=== PATIENT | female | born 1990 | race Caucasian/White ===

== ENCOUNTER 2016-10-20 22:14 | Emergency (ER) | END 2016-10-21 03:48 | disposition home or self-care (01) | DX: N83.201 Unspecified ovarian cyst, right side (principal); N30.01 Acute cystitis with hematuria; F17.210 Nicotine dependence, cigarettes, uncomplicated; J45.909 Unspecified asthma, uncomplicated | CPT/HCPCS: 36415; 76856; 80053; 81001; 81003; 83690; 84703; 85025; 87591; 96372; J0696; Z7502 ==

== ENCOUNTER 2016-11-28 21:45 | Inpatient (IN) | payer MEDICAID ==
[~2016-11-28] VITALS: Ht 167.6 cm; Wt 60.2 kg
[~2016-11-28 21:45] MED LIST: CEPH-443 PO; HYDR-906 PO; IBUP-1542 PO; PHEN-538 PO; PREN1TAB49; TRAM50TA2 PO
[2016-11-28] MEDS ORDERED: ONDANSETRON (ODT) 4 MG TAB ODT STA (23:00)
--- NOTE | 2016-11-28 23:08 | ERD ---
ER Documentation Chief Complaint Date/Time DATE: 11/28/16 TIME: 23:07 Chief Complaint lower back pain x 2 days. also c/o nausea/dizziness (ENRRIQUE LOMBARDO NP) HPI 25-year-old female presents to emergency department for lower back pain, generalized abdominal pain, chest pain, nausea, episodes of vomiting yesterday , dizziness, generalized fatigability started yesterday. Patient denies any blood in the vomit. Patient denies any diarrhea or constipation. Patient feels bloated. Patient is also having dry cough, does not cough up any phlegm or blood. Patient does not have any short is breath or wheezing. Patient did not take any medications to symptoms. Patient denies any sick contacts. Patient did not take any medications to help with symptoms. (ENRRIQUE LOMBARDO NP) ROS All systems reviewed and are negative except as per history of present illness. (ENRRIQUE LOMBARDO NP) Medications Home Meds Active Scripts Cephalexin* (Keflex*) 500 Mg Capsule, 500 MG PO QID for 10 Days, CAP Prov:ENRRIQUE LOMBARDO NP 10/21/16 Ibuprofen* (Motrin*) 600 Mg Tab, 600 MG PO Q6H Y for PAIN AND OR ELEVATED TEMP, #30 TAB Prov:ENRRIQUE LOMBARDO NP 10/21/16 Hydrocodone/Acetaminophen ([place] 5-325 Tablet) 1 Each Tablet, 1 TAB PO Q6H Y for PAIN, #20 TAB Prov:ENRRIQUE LOMBARDO NP 10/21/16 Phenazopyridine Hcl* (Pyridium*) 200 Mg Tab, 200 MG PO TID Y for URINARY PAIN, # 6 TAB Prov:ENRRIQUE LOMBARDO NP 10/21/16 Tramadol HCl (Tramadol HCl) 50 Mg Tablet, 50 MG PO Q4 Y for PAIN, #20 TAB Prov:ROBB BRUNER MD 08/15/16 Ibuprofen* (Motrin*) 600 Mg Tab, 600 MG PO Q6, #20 TAB Prov:ROBB BRUNER MD 08/15/16 Reported Medications Vits W-Ca,Fe,Fa(<1MG) () 1 Tab Tablet 12/12/10 Allergies Allergies: Coded Allergies: ciprofloxacin (Verified Allergy, Unknown, swelling, 11/28/16) PMhx/Soc History of Surgery: No Anesthesia Reaction: No Hx Neurological Disorder: No Hx Respiratory Disorders: Yes (Asthma-childhood) Hx Cardiac Disorders: No Hx Psychiatric Problems: No Hx Miscellaneous Medical Probl: No Hx Alcohol Use: Yes (SOCIALLY) Hx Substance Use: No Hx Tobacco Use: Yes (OCCASIONALY) (ENRRIQUE LOMBARDO NP) FmHx Family History: No coronary disease, No diabetes, No other (ENRRIQUE LOMBRADO NP) Physical Exam Vitals Vital Signs Date Time Temp Pulse Resp B/P Pulse Ox O2 Delivery O2 Flow Rate FiO2 11/29/16 04:20 98.1 91 14 133/90 98 Room Air 11/28/16 21:53 98.0 90 20 122/73 98 (FLOYDMEKBRENDAN LOW MD) Physical Exam GENERAL: The patient is well developed and appropriate for usual state of health, in no apparent distress. CHEST: Clear to auscultation bilaterally. There are no rales, wheezes or rhonchi. HEART: Regular rate and rhythm. No murmurs, clicks, rubs or gallops. No S3 or S4. ABDOMEN: Soft, nontender and nondistended. Good bowel sounds. No rebound or guarding. No gross peritonitis. No gross organomegaly or masses. No Mclaughlin sign or McBurney point tenderness. BACK: No midline or flank tenderness. EXTREMITIES: Equal pulses bilaterally. There is no peripheral clubbing, cyanosis or edema. No focal swelling or erythema. Full range of motion. Grossly neurovascularly intact. NEURO: Alert and oriented. Cranial nerves 2-12 intact. Motor strength in all 4 extremities with 5/5 strength. Sensation grossly intact. Normal speech and gait. SKIN: There is no apparent rash or petechia. The skin is warm and dry. HEMATOLOGIC AND LYMPHATIC: There is no evidence of excessive bruising or lymphedema. No gross cervical, axillary, or inguinal lymphadenopathy. (ENRRIQUE LOMBARDO NP) Result Diagram: 11/28/16 2310 11/28/16 2310 Results 24 hrs Laboratory Tests Test 11/28/16 23:10 11/28/16 23:15 Alanine Aminotransferase (ALT/SGPT) 30IU/L Albumin 4.7g/dl Albumin/Globulin Ratio 1.30 Alkaline Phosphatase 68IU/L Anion Gap 19 Aspartate Amino Transf (AST/SGOT) 62IU/L Basophils # 0.010^3/ul Basophils % 0.2% Blood Urea Nitrogen 10mg/dl Calcium Level 9.1mg/dl Carbon Dioxide Level 28mmol/L Chloride Level 100mmol/L Creatinine 0.62mg/dl Direct Bilirubin 0.00mg/dl Eosinophils # 0.110^3/ul Eosinophils % 0.7% Globulin 3.60g/dl Glucose Level 98mg/dl Hematocrit 43.2% Hemoglobin 13.9g/dl Indirect Bilirubin 0.2mg/dl Lipase 51U/L Lymphocytes # 1.510^3/ul Lymphocytes % 8.0% Mean Corpuscular Hemoglobin 30.5pg Mean Corpuscular Hemoglobin Concent 32.2g/dl Mean Corpuscular Volume 94.9fl Mean Platelet Volume 9.9fl Monocytes # 0.810^3/ul Monocytes % 4.3% Neutrophils # 15.810^3/ul Neutrophils % 86.4% Nucleated Red Blood Cells # 0.010^3/ul Nucleated Red Blood Cells % 0.0/100WBC Platelet Count 50446^3/UL Potassium Level 3.7mmol/L Red Blood Count 4.5510^6/ul Red Cell Distribution Width 12.6% Sodium Level 143mmol/L Total Bilirubin 0.2mg/dl Total Protein 8.3g/dl White Blood Count 18.310^3/ul Urine Bacteria MANY Urine Bilirubin NEGATIVE Urine Clarity HAZY Urine Color LT. YELLOW Urine Glucose NEGATIVE% Urine Hemoglobin 2+ Urine Ketones TRACE Urine Leukocyte Esterase TRACE Urine Microscopic RBC 2-5/HPF Urine Microscopic WBC 0-2/HPF Urine Nitrite NEGATIVE Urine Specific [place] 1.020 Urine Squamous Epithelial Cells MANY Urine Total Protein NEGATIVE Urine Urobilinogen 0.2 E.U./dL Urine pH 6.5 Current Medications Medications (Trade) Dose Ordered Sig/[place] Route PRN Reason Start Time Stop Time Status Last Admin Dose Admin Ondansetron HCl (Zofran Odt) 4 mg ONCE STAT ODT 11/28/16 23:00 11/28/16 23:17 DC Ondansetron HCl 4 mg 4 mg ONCE STAT IV 11/28/16 23:16 11/28/16 23:18 DC 11/28/16 23:20 Sodium Chloride (NS) 1,000 ml @ 1,000 mls/hr Q1H ONCE IV 11/28/16 23:30 11/29/16 00:29 DC 11/28/16 23:20 Morphine Sulfate (morphine) 4 mg ONCE STAT IV 11/29/16 03:43 11/29/16 03:49 DC 11/29/16 03:53 Ondansetron HCl (Zofran Inj) 4 mg ONCE STAT IV 11/29/16 03:46 11/29/16 03:49 DC 11/29/16 03:53 Morphine Sulfate (morphine) 4 mg STK-MED ONCE .ROUTE 11/29/16 03:49 11/29/16 03:50 DC Midazolam HCl (Versed) 2 mg ONCE ONCE IV 11/29/16 04:00 11/29/16 04:01 DC 11/29/16 04:08 Ondansetron HCl (Zofran Inj) 4 mg ONCE STAT IV 11/29/16 03:59 11/29/16 04:00 DC 11/29/16 04:08 Ondansetron HCl (Zofran Inj) 4 mg BRIDGE ORDER PRN IV NAUSEA AND/OR VOMITING 11/29/16 05:00 11/30/16 04:59 Acetaminophen (Tylenol Tab) 650 mg ER BRIDGE PRN PO MILD PAIN/FEVER 11/29/16 05:00 11/30/16 04:59 (BRENDAN MIKE MD) Results 24 hrs Patient was given Zofran here in the emergency department. After treatment, patient was able to tolerate po fluids here in the emergency department without any vomiting. There is no signs and symptoms of dehydration. PROCEDURE: CT of the abdomen and pelvis without contrast CLINICAL INDICATION: Abdominal Pain. TECHNIQUE: Spiral CT images through the abdomen and pelvis without the use of contrast. The administered radiation dose is CTDI 8.62 and DLP 486.39. One or more of the following dose reduction techniques were used: automated exposure control, adjustment of the mA and/or kV according to patient size, or use of iterative reconstruction technique. COMPARISON: None FINDINGS: Lack of oral and intravenous contrast somewhat limits evaluation. Slight dependent atelectasis of the lung bases is seen. No pleural effusion is seen. Gallstones are again seen. The gallbladder does not appear distended. No biliary or pancreatic ductal dilatation is seen. The liver, spleen, and adrenals are unremarkable in appearance. New tiny nonobstructing stone is seen in the medial upper pole of the right kidney. Probable hyperdense 9 mm cyst in the posterior left kidney is again seen. Mild chronic diffuse prominence of the pancreatic size is unchanged. The appendix is normal in appearance. There is mild dilatation of essentially all of the visualized small bowel loops without a clearly defined transition point. Fluid is seen in the cecum and moderate stool is otherwise seen throughout the colon. No free air or abscess is seen. No adenopathy or ascites is seen. The bladder, uterus, and adnexa are unremarkable appearance. Probable small right ovarian follicles. Small calcification in the subcutaneous fat in the lateral right gluteal region. No bony abnormality is seen.. IMPRESSION: Mild dilatation of essentially all small bowel loops without a clearly defined transition point. While early distal small bowel obstruction cannot be excluded , this may be due to ileus. If pain persists, follow-up study with IV and oral contrast would be recommended. Normal appendix. Cholelithiasis. No ductal dilatation. New tiny nonobstructing right renal stone. Stable probable hyperdense cyst in the left kidney. RPTAT: [facility] Physician Ramón Date Time Electronically viewed and signed by Physician Ramón on 11/29/2016 03 :36 LE/ CC: ENRRIQUE LOMBARDO NP I discussed this case with my attending physician,Dr Rudd, reviewed patient' s CT scan abdomen and pelvis with me, patient be admitted to the hospital for possible observation and treatment. Patient is transferred to ER 1. (ENRRIQUE LOMBARDO NP) Procedures/MDM Medical Decision Making: Patient abdominal pain nonspecific at this time, possible ileus, can be early small bowel obstruction, considering patient is actively vomiting, in severe pain, further evaluation and observation is necessary, possible admission, I spoke with my attending physician,will facilitate patient's admission to the hospital. (ENRRIQUE LOMBARDO NP) The patient was transferred from ER 1 for admission. She is presenting with multiple episodes of intractable nausea and vomiting today with associated diffuse abdominal pain. Her labs were notable for an elevated white blood cell count, which may be indicative of acute infection versus a stress response to her vomiting. Her CT shows evidence of diffuse small bowel dilatation, which may be secondary to an acute gastroenteritis. Given her intractable vomiting, an NG tube was placed. She was given multiple doses of anti-emetics. I do not suspect surgical abdomen at this time but I do not believe the patient is stable for discharge and will need admission for bowel rest and serial abdominal exams. Accepting Care Team: Current data and ongoing care discussed. Time: Time of admission Primary Provider: Dr. Vega Consulting: None Outstanding Data: none (BRENDAN MIKE MD) Departure Diagnosis: Primary Impression: Vomiting Vomiting type: unspecified Vomiting Intractability: unspecified Nausea presence: unspecified Qualified Code: R11.10 - Vomiting, intractability of vomiting not specified, presence of nausea not specified, unspecified vomiting type Additional Impressions: Abdominal pain Abdominal location: generalized Qualified Code: R10.84 - Generalized abdominal pain Ileus Condition: Fair ENRRIQUE LOMBARDO NP Nov 28, 2016 23:08 BRENDAN MIKE MD Nov 29, 2016 04:57
[2016-11-28] MEDS ORDERED: ONDANSETRON 4 MG INJ IV STA (23:16)
[2016-11-28 23:21] LABS: ADD SCAN DIFF NO
[2016-11-28 23:27] LABS: BASOPHILS % 0.2 % (0.0-2.0); EOSINOPHILS # 0.1 10^3/ul (0.0-0.5); EOSINOPHILS % 0.7 % (0.0-7.0); HEMATOCRIT 43.2 % (37.0-47.0); HEMOGLOBIN 13.9 g/dl (12.0-16.0); LYMPHOCYTES # 1.5 10^3/ul (0.8-2.9); MEAN CORPUSCULAR HEMOGLOBIN 30.5 pg (29.0-33.0); MEAN CORPUSCULAR HGB CONC 32.2 g/dl (32.0-37.0); MEAN CORPUSCULAR VOLUME 94.9 fl (82.0-101.0); MEAN PLATELET VOLUME 9.9 fl (7.4-10.4); MONOCYTE # 0.8 10^3/ul (0.3-0.9); MONOCYTES % 4.3 % (0.0-11.0); NEUTROPHIL # 15.8 10^3/ul (1.6-7.5); NEUTROPHILS % 86.4 % (39.0-77.0); PLATELET COUNT 293 10^3/UL (140-415); RED BLOOD COUNT 4.55 10^6/ul (4.20-5.40); RED CELL DISTRIBUTION WIDTH 12.6 % (11.5-14.5); WHITE BLOOD COUNT 18.3 10^3/ul (4.8-10.8)
[2016-11-28] MEDS ORDERED: SOD CHLORIDE 0.9% 1,000 ML IV ONE (23:30)
[2016-11-28 23:33] LABS: ALBUMIN 4.7 g/dl (3.3-4.9)
[2016-11-28 23:34] LABS: POTASSIUM 3.7 mmol/L (3.5-5.1)
[2016-11-28 23:36] LABS: BILIRUBIN,INDIRECT 0.2 mg/dl (0-1.1); BILIRUBIN,TOTAL 0.2 mg/dl (0.2-1.3); CREATININE 0.62 mg/dl (0.44-1.00)
[2016-11-28 23:37] LABS: ALBUMIN/GLOBULIN RATIO 1.3; CALCIUM 9.1 mg/dl (8.4-10.2); TOTAL PROTEIN 8.3 g/dl (6.1-8.1)
[2016-11-29 00:04] LABS: ADD UMIC YES; URINE BILIRUBIN (Dip) NEGATIVE (NEGATIVE); URINE BLOOD (Dip) 2+ (NEGATIVE); URINE COLOR LT. YELLOW (YELLOW); URINE GLUCOSE (Dip) NEGATIVE (NEGATIVE); URINE KETONES (Dip) TRACE (NEGATIVE); URINE LEUKOCYTE ESTERASE (Dip) TRACE (NEGATIVE); URINE NITRITE (Dip) NEGATIVE (NEGATIVE); URINE TOTAL PROTEIN (Dip) NEGATIVE (NEGATIVE); URINE UROBILINOGEN (Dip) 0.2 E.U./dL (0.1-1.0)
[2016-11-29 00:34] LABS: BACTERIA,URINE MANY; SQUAMOUS EPITHELIAL CELL,UR MANY
--- NOTE | 2016-11-29 00:56 | RADRPT ---
PROCEDURE: CHEST - 1 VIEW CLINICAL INDICATION: 25-year-old female with chest/abdominal pain. TECHNIQUE: A single frontal AP semi-erect view of the chest was performed portably. The images we re reviewed on a PACS workstation. COMPARISON: None. FINDINGS: The cardiomediastinal silhouette has a normal appearance. There is no evidence for an infiltrate. T he pulmonary vascularity is within normal limits. There is no evidence for pneumothorax or pneumomed iastinum. The osseous structures are intact. IMPRESSION: No evidence for active cardiopulmonary disease. .Glen Garcia MD, MD Date Time Electronically viewed and signed by .Glen Garcia MD, MD on 11/29/2016 00:55 .M/
--- NOTE | 2016-11-29 03:36 | RADRPT ---
PROCEDURE: CT of the abdomen and pelvis without contrast CLINICAL INDICATION: Abdominal Pain. TECHNIQUE: Spiral CT images through the abdomen and pelvis without the use of contrast. The admin istered radiation dose is CTDI 8.62 and DLP 486.39. One or more of the following dose reduction alejandrina hniques were used: automated exposure control, adjustment of the mA and/or kV according to patient s ize, or use of iterative reconstruction technique. COMPARISON: None FINDINGS: Lack of oral and intravenous contrast somewhat limits evaluation. Slight dependent atelectasis of the lung bases is seen. No pleural effusion is seen. Gallstones are again seen. The gallbladder d oes not appear distended. No biliary or pancreatic ductal dilatation is seen. The liver, spleen, and adrenals are unremarkable in appearance. New tiny nonobstructing stone is se en in the medial upper pole of the right kidney. Probable hyperdense 9 mm cyst in the posterior lef t kidney is again seen. Mild chronic diffuse prominence of the pancreatic size is unchanged. The a ppendix is normal in appearance. There is mild dilatation of essentially all of the visualized smal l bowel loops without a clearly defined transition point. Fluid is seen in the cecum and moderate s tool is otherwise seen throughout the colon. No free air or abscess is seen. No adenopathy or ascit es is seen. The bladder, uterus, and adnexa are unremarkable appearance. Probable small right ova heena follicles. Small calcification in the subcutaneous fat in the lateral right gluteal region. N o bony abnormality is seen.. IMPRESSION: Mild dilatation of essentially all small bowel loops without a clearly defined transition point. Wh ile early distal small bowel obstruction cannot be excluded, this may be due to ileus. If pain pers ists, follow-up study with IV and oral contrast would be recommended. Normal appendix. Cholelithiasis. No ductal dilatation. New tiny nonobstructing right renal stone. Stable probable hyperdense cyst in the left kidney. RPTAT: [facility] Physician Ramón Date Time Electronically viewed and signed by Daksha Bean Physician on 11/29/2016 03:36 LE/
[2016-11-29] MEDS ORDERED: morphine 4 MG/ML VIAL IV STA (03:43)
[2016-11-29] MEDS ORDERED: ONDANSETRON 4 MG INJ IV STA ×2 (03:46→03:59)
[2016-11-29] MEDS ORDERED: morphine 4 MG/ML VIAL ONE (03:49)
[2016-11-29] MEDS ORDERED: MIDAZOLAM 1 MG/ML 2 ML INJ IV ONE (04:00)
[2016-11-29 04:20] VITALS: TEMP 98.1
[2016-11-29] MEDS ORDERED: ONDANSETRON 4 MG INJ IV PRN ×2 (05:00→07:00)
[2016-11-29] MEDS ORDERED: ACETAMINOPHEN 325 MG TAB PO PRN (05:00)
[2016-11-29 06:04] VITALS: BP 117/69; PULSE 83; RESP 18; Ht 167.6 cm; Wt 60.2 kg
--- NOTE | 2016-11-29 06:47 | HP ---
Date/Time of Note Date/Time of Note DATE: 11/29/16 TIME: 06:44 Assessment/Plan VTE Prophylaxis VTE Prophylaxis Intervention: ambulation Lines/Catheters IV Catheter Type (from Nrsg): Saline Lock Assessment/Plan Assessment/Plan 1) Vomiting Vomiting type: unspecified Vomiting Intractability: unspecified Nausea presence: unspecified Qualified Code: R11.10 - Vomiting, intractability of vomiting not specified, presence of nausea not specified, unspecified vomiting type - Admit to Med Surg - NPO - H2 sade - Antiemetics 2) Abdominal pain Abdominal location: generalized Qualified Code: R10.84 - Generalized abdominal pain Ileus - May need GI or General Surgery Consult if her pain persists or worsens. - Consider infectious source as WBCs are elevated. HPI/ROS Admit Date/Time Admit Date/Time Nov 29, 2016 at 04:40 Hx of Present Illness Chief Complaint lower back pain x 2 days. also c/o nausea/dizziness HPI 25-year-old female presents to emergency department for lower back pain, generalized abdominal pain, chest pain, nausea, episodes of vomiting yesterday , dizziness, generalized fatigability started yesterday. She thought that she had the flu because of all the body aches she was having. Patient denies any blood in the vomit. Patient denies any diarrhea or constipation. Patient feels bloated. She has a pain in her epigastrium (where she points) and it wraps around to the right flank and back, it does not bore straight through her. Intermittently, she has had sharp pains in her left shoulder and left upper back. Some feel like expanding gas bubbles. She sometimes gets relief of her abdominal symptoms when she has a BM. She went to work yesterday, but had to leave early as she was having cold sweats. She then started vomiting uncontrollably - no food, only bile. Patient is also having dry cough, does not cough up any phlegm or blood. Patient does not have any short is breath or wheezing. Patient did not take any medications to symptoms. Patient denies any sick contacts. Patient did not take any medications to help with symptoms. Patient mentions that a cyst was recently found on one of her ovaries. She had her period for a month, and it stopped 4 days ago. Her breasts were tender, but that resolved when her period stopped. She thinks the long period may be because she went of Depo-Cheese [employer] 2 to 3 months ago. She has a history of gastritis and states that it gets aggravated by acidic things like coffee, but also greasy things like butter.She has not had black or bloody stools. Besides her abdominal pains, patient mentions the pain from her NGT, particularly in her right nare and some down her throat which was also irritated from her recent cold. ROS: Unremarkable except for what is in the HPI. PMH/Family/Social Past Medical History Medical History: other (Gastritis; Asthma as a child.) Past Surgical History Past Surgical Hx: no surgical history Social History Alcohol Use: occasionally (Socially) Smoking Status: Current some day smoker Drug Use: none Exam/Review of Systems Vital Signs Vitals Vital Signs Date Time Temp Pulse Resp B/P Pulse Ox O2 Delivery O2 Flow Rate FiO2 11/29/16 06:04 98.4 83 18 117/69 94 Room Air Intake and Output 11/28/16 11/28/16 11/29/16 15:00 23:00 07:00 Intake Total 1000 ml Balance 1000 ml Exam Exam GENERAL: The patient is well developed and appropriate for usual state of health, in no apparent distress. CHEST: Clear to auscultation bilaterally. There are no rales, wheezes or rhonchi. HEART: Regular rate and rhythm. No murmurs, clicks, rubs or gallops. No S3 or S4. ABDOMEN: Soft, nontender and nondistended. Good bowel sounds. No rebound or guarding. No gross peritonitis. No gross organomegaly or masses. No Mclaughlin sign or McBurney point tenderness. BACK: No midline or flank tenderness. EXTREMITIES: Equal pulses bilaterally. There is no peripheral clubbing, cyanosis or edema. No focal swelling or erythema. Full range of motion. Grossly neurovascularly intact. NEURO: Alert and oriented. Cranial nerves 2-12 intact. Motor strength in all 4 extremities with 5/5 strength. Sensation grossly intact. Normal speech and gait. SKIN: There is no apparent rash or petechia. The skin is warm and dry. HEMATOLOGIC AND LYMPHATIC: There is no evidence of excessive bruising or lymphedema. No gross cervical, axillary, or inguinal lymphadenopathy. Labs Result Diagram: 11/28/16 2310 11/28/16 2310 Procedures Procedures Laboratory Tests Test 3/11/17 23:10 11/28/16 23:15 Alanine Aminotransferase (ALT/SGPT) 30IU/L Albumin 4.7g/dl Albumin/Globulin Ratio 1.30 Alkaline Phosphatase 68IU/L Anion Gap 19 Aspartate Amino Transf (AST/SGOT) 62IU/L Basophils # 0.010^3/ul Basophils % 0.2% Blood Urea Nitrogen 10mg/dl Calcium Level 9.1mg/dl Carbon Dioxide Level 28mmol/L Chloride Level 100mmol/L Creatinine 0.62mg/dl Direct Bilirubin 0.00mg/dl Eosinophils # 0.110^3/ul Eosinophils % 0.7% Globulin 3.60g/dl Glucose Level 98mg/dl Hematocrit 43.2% Hemoglobin 13.9g/dl Indirect Bilirubin 0.2mg/dl Lipase 51U/L Lymphocytes # 1.510^3/ul Lymphocytes % 8.0% Mean Corpuscular Hemoglobin 30.5pg Mean Corpuscular Hemoglobin Concent 32.2g/dl Mean Corpuscular Volume 94.9fl Mean Platelet Volume 9.9fl Monocytes # 0.810^3/ul Monocytes % 4.3% Neutrophils # 15.810^3/ul Neutrophils % 86.4% Nucleated Red Blood Cells # 0.010^3/ul Nucleated Red Blood Cells % 0.0/100WBC Platelet Count 59799^3/UL Potassium Level 3.7mmol/L Red Blood Count 4.5510^6/ul Red Cell Distribution Width 12.6% Sodium Level 143mmol/L Total Bilirubin 0.2mg/dl Total Protein 8.3g/dl White Blood Count 18.310^3/ul Urine Bacteria MANY Urine Bilirubin NEGATIVE Urine Clarity HAZY Urine Color LT. YELLOW Urine Glucose NEGATIVE% Urine Hemoglobin 2+ Urine Ketones TRACE Urine Leukocyte Esterase TRACE Urine Microscopic RBC 2-5/HPF Urine Microscopic WBC 0-2/HPF Urine Nitrite NEGATIVE Urine Specific [place] 1.020 Urine Squamous Epithelial Cells MANY Urine Total Protein NEGATIVE Urine Urobilinogen 0.2 E.U./dL Urine pH 6.5 RADIOLOGY: PROCEDURE: CT of the abdomen and pelvis without contrast CLINICAL INDICATION: Abdominal Pain. FINDINGS: Lack of oral and intravenous contrast somewhat limits evaluation. Slight dependent atelectasis of the lung bases is seen. No pleural effusion is seen. Gallstones are again seen. The gallbladder does not appear distended. No biliary or pancreatic ductal dilatation is seen. The liver, spleen, and adrenals are unremarkable in appearance. New tiny nonobstructing stone is seen in the medial upper pole of the right kidney. Probable hyperdense 9 mm cyst in the posterior left kidney is again seen. Mild chronic diffuse prominence of the pancreatic size is unchanged. The appendix is normal in appearance. There is mild dilatation of essentially all of the visualized small bowel loops without a clearly defined transition point. Fluid is seen in the cecum and moderate stool is otherwise seen throughout the colon. No free air or abscess is seen. No adenopathy or ascites is seen. The bladder, uterus, and adnexa are unremarkable appearance. Probable small right ovarian follicles. Small calcification in the subcutaneous fat in the lateral right gluteal region. No bony abnormality is seen.. IMPRESSION: Mild dilatation of essentially all small bowel loops without a clearly defined transition point. While early distal small bowel obstruction cannot be excluded , this may be due to ileus. If pain persists, follow-up study with IV and oral contrast would be recommended. Normal appendix. Cholelithiasis. No ductal dilatation. New tiny nonobstructing right renal stone. Stable probable hyperdense cyst in the left kidney. PROCEDURE: CHEST - 1 VIEW CLINICAL INDICATION: 25-year-old female with chest/abdominal pain. FINDINGS: The cardiomediastinal silhouette has a normal appearance. There is no evidence for an infiltrate. The pulmonary vascularity is within normal limits. There is no evidence for pneumothorax or pneumomediastinum. The osseous structures are intact. IMPRESSION: No evidence for active cardiopulmonary disease. DILLAN WADE DO Nov 29, 2016 06:46 The cardiomediastinal silhouette has a normal appearance. There is no evidence for an infiltrate. The pulmonary vascularity is within normal limits. There is no evidence for pneumothorax or pneumomediastinum. The osseous structures are intact.
[2016-11-29] MEDS ORDERED: ACETAMINOPHEN 650 MG SUPP PR PRN (07:00)
[2016-11-29] MEDS ORDERED: NACL 0.9% 3 ML SYG IV SCH (07:00)
[2016-11-29 07:21] VITALS: BP 115/63; RESP 18
[2016-11-29] MEDS ORDERED: SOD CHLORIDE 0.9% 1,000 ML IV SCH (07:30)
[2016-11-29 07:55] LABS: CANNABINOIDS Negative (NEGATIVE)
[2016-11-29 07:56] LABS: BARBITURATES Negative (NEGATIVE); BENZODIAZEPINES Negative (NEGATIVE); COCAINE Negative (NEGATIVE); OPIATES Positive (NEGATIVE)
[2016-11-29] MEDS: FAMOTIDINE 20 MG INJ IV SCH ×2 (08:32→21:15)
[2016-11-29] MEDS: morphine 2 MG INJ IV PRN ×4 (08:35→22:43)
[2016-11-29] MEDS ORDERED: BARIUM SULF 2% 450 ML BTL (BERRY SMOOTHIE) PO ONE (11:30)
[2016-11-29] MEDS: PHENOL 1.4% SOLN 180 ML BTL MT PRN ×4 (11:33→21:16)
[2016-11-29] MEDS: D5W-0.45 NACL + KCL 20 MEQ 1,000 ML IV SCH ×2 (11:33→21:19)
--- NOTE | 2016-11-29 15:50 | RADRPT ---
PROCEDURE: CT Abdomen and Pelvis without contrast. CLINICAL INDICATION: Abdominal and pelvic pain. TECHNIQUE: CT scan of the abdomen and pelvis without contrast was performed. 900 ml of Choi cast oral contrast was administered for this study. Coronal and sagittal reformatted images were obtained from the axial source images. Images were reviewed on a high-resolution PACS workstation. Total exa m DLP is 388.92 mGy-cm. CTDIvol is 6.98 mGy. One or more of the following dose reduction technique s were used: Automated exposure control, adjustment of the mA and/or kV according to patient size, u se of iterative reconstruction technique. COMPARISON: Prior study done earlier the same day. FINDINGS: The lung bases are normal. There is no pleural effusion. The liver is normal in size and attenuation. There is no focal hepatic lesion. Multiple gallstones are present in the gallbladder. No bile ducts are normal. The nasogastric tube tip is in the gastric antrum. The spleen is normal in size. There is no focal splenic lesion. Both adrenals are normal with no enlargement or mass. The pancreas is unremarkable with no mass or evidence of pancreatitis. There is a 0.1 cm nonobstructing calculus in the mid right kidney. There is no other renal calculus . Both kidneys are otherwise normal with no mass or hydronephrosis. There is no ureteral calculus on either side. The abdominal aorta is not dilated. There is no retroperitoneal lymphadenopathy or mass. There is no pelvic lymphadenopathy or mass. The bladder and distal ureters are normal. The appendix is well seen and appears normal. There is contrast present throughout the small bowel and colon. There are is no evidence of obstruc tion. Previously noted dilated fluid-containing loops of small bowel now appear normal. There is no free fluid or free gas. The osseous structures are unremarkable with no fracture or lytic lesion. IMPRESSION: 1. Gallstones in the gallbladder. No evidence of cholecystitis. 2. New nasogastric tube tip in the stomach. 3. Nonobstructing 0.1 cm calculus in the mid right knee. 4. Contrast throughout the small bowel and colon. No evidence of bowel obstruction. 5. Otherwise unremarkable study. RPTAT: QQ .Gonzalez Burgess MD, Date Time Electronically viewed and signed by .Gonzalez Burgess MD, on 11/29/2016 15:49 .R/
[2016-11-29 19:19] VITALS: BP 113/76; RESP 14
[2016-11-30 05:30] LABS: ADD SCAN DIFF NO
[2016-11-30 05:35] LABS: BASOPHILS % 0.2 % (0.0-2.0); EOSINOPHILS # 0.1 10^3/ul (0.0-0.5); EOSINOPHILS % 2.3 % (0.0-7.0); HEMATOCRIT 37.6 % (37.0-47.0); HEMOGLOBIN 11.9 g/dl (12.0-16.0); LYMPHOCYTES # 1.3 10^3/ul (0.8-2.9); LYMPHOCYTES % 23.3 % (15.0-51.0); MEAN CORPUSCULAR HEMOGLOBIN 30.7 pg (29.0-33.0); MEAN CORPUSCULAR HGB CONC 31.6 g/dl (32.0-37.0); MEAN CORPUSCULAR VOLUME 96.9 fl (82.0-101.0); MONOCYTE # 0.4 10^3/ul (0.3-0.9); MONOCYTES % 7.7 % (0.0-11.0); NEUTROPHIL # 3.7 10^3/ul (1.6-7.5); NEUTROPHILS % 66.3 % (39.0-77.0); PLATELET COUNT 237 10^3/UL (140-415); RED BLOOD COUNT 3.88 10^6/ul (4.20-5.40); RED CELL DISTRIBUTION WIDTH 12.7 % (11.5-14.5); WHITE BLOOD COUNT 5.6 10^3/ul (4.8-10.8)
[2016-11-30 05:51] LABS: ALBUMIN 3.4 g/dl (3.3-4.9)
[2016-11-30 05:52] LABS: POTASSIUM 4.2 mmol/L (3.5-5.1)
[2016-11-30 05:54] LABS: BILIRUBIN,INDIRECT 0.1 mg/dl (0-1.1); BILIRUBIN,TOTAL 0.1 mg/dl (0.2-1.3); CREATININE 0.65 mg/dl (0.44-1.00)
[2016-11-30 05:55] LABS: ALBUMIN/GLOBULIN RATIO 1.21; CALCIUM 8.3 mg/dl (8.4-10.2); TOTAL PROTEIN 6.2 g/dl (6.1-8.1)
[2016-11-30 05:58] LABS: PHOSPHORUS 3.1 mg/dl (2.5-4.9)
[2016-11-30 05:59] LABS: MAGNESIUM 2.3 mg/dl (1.7-2.5)
[2016-11-30] MEDS: D5W-0.45 NACL + KCL 20 MEQ 1,000 ML IV SCH ×2 (06:09→18:00)
[2016-11-30 06:29] LABS: THYROID STIMULATING HORMONE 1.36 MIU/L (0.465-4.680)
[2016-11-30 07:51] VITALS: BP 107/67; RESP 18
[2016-11-30] MEDS: FAMOTIDINE 20 MG INJ IV SCH ×2 (08:07→20:34)
--- NOTE | 2016-11-30 15:07 | PN ---
Date/Time of Note Date/Time of Note DATE: 11/30/16 TIME: 15:04 Assessment/Plan VTE Prophylaxis VTE Prophylaxis Intervention: ambulation, SCD's Lines/Catheters IV Catheter Type (from Nrs): Peripheral IV Urinary Cath still in place: No Assessment/Plan Chief Complaint/Hosp Course Assessment and plan 1. Abdominal pain secondary to ileus. Patient is status post NG tube. Surgeon following. Advance diet per surgeon recommendations. Analgesics as needed. Continue on GERD prophylaxis. Appears to be improving. 2. Leukocytosis secondary to #1. Improved at this time. We'll monitor 3. Transaminitis. Etiology unknown. Follow-up on hepatitis panel Disposition and plan: Appears to be overall improving. Advance diet per surgeon recommendations. Discharge when cleared by consultants and medically stable Discussed but of care with Dr. Rodriguez Problems: Subjective 24 Hr Interval Summary Free Text/Dictation Reports less abdominal pain at this time. Exam/Review of Systems Vital Signs Vitals Vital Signs Date Time Temp Pulse Resp B/P Pulse Ox O2 Delivery O2 Flow Rate FiO2 11/30/16 07:51 98.5 67 18 107/67 100 11/29/16 06:04 Room Air Intake and Output 11/29/16 11/29/16 11/30/16 15:00 23:00 07:00 Intake Total 1300 ml 1000 ml Output Total 300 ml Balance 1000 ml 1000 ml Exam General: No acute signs or symptoms of distress Eyes: pupils equal round, Anicteric sclera Neck: Supple nontender, no JVD Cardiac: S1, S2 auscultated, regular rhythm and rate Pulmonary: No coarse rhonchi or breathing auscultated GI: Abdomen soft nontender nondistended, bowel sounds active Extremities: No edema bilateral lower extremities Skin: Clean dry and intact Neurologic: Alert to person place and time and situation Results Result Diagram: 11/30/16 0456 11/30/16 0456 Results 24 hrs Laboratory Tests Test 11/30/16 04:56 Alanine Aminotransferase (ALT/SGPT) 201 H Albumin 3.4 # Albumin/Globulin Ratio 1.21 Alkaline Phosphatase 71 Anion Gap 12 # Aspartate Amino Transf (AST/SGOT) 157 H Basophils # 0.0 Basophils % 0.2 Blood Urea Nitrogen 3 L Calcium Level 8.3 L Carbon Dioxide Level 31 Chloride Level 103 Cholesterol Level 110 Cholesterol/HDL Ratio 2.0 Creatinine 0.65 Direct Bilirubin 0.00 Eosinophils # 0.1 Eosinophils % 2.3 Free Thyroxine 1.04 Globulin 2.80 Glucose Level 103 HDL Cholesterol 54 Hematocrit 37.6 Hemoglobin 11.9 L Hemoglobin A1c 5.3 Indirect Bilirubin 0.1 LDL Cholesterol, Calculated 45 Lymphocytes # 1.3 Lymphocytes % 23.3 Magnesium Level 2.3 Mean Corpuscular Hemoglobin 30.7 Mean Corpuscular Hemoglobin Concent 31.6 L Mean Corpuscular Volume 96.9 Mean Platelet Volume 10.0 Monocytes # 0.4 Monocytes % 7.7 Neutrophils # 3.7 Neutrophils % 66.3 Nucleated Red Blood Cells # 0.0 Nucleated Red Blood Cells % 0.0 Phosphorus Level 3.1 Platelet Count 237 Potassium Level 4.2 Red Blood Count 3.88 L Red Cell Distribution Width 12.7 Sodium Level 142 Thyroid Stimulating Hormone (TSH) 1.360 Total Bilirubin 0.1 L Total Protein 6.2 # Triglycerides Level 55 White Blood Count 5.6 # Medications Medications Current Medications Ondansetron HCl (Zofran Inj) 4 mg Q6H PRN IV NAUSEA AND/OR VOMITING; Start 09/05 at 07:00 Acetaminophen (Tylenol Supp) 650 mg Q6H PRN MD PAIN LEVEL 1-3 OR FEVER; Start 11/29/16 at 07:00 Morphine Sulfate (morphine) 2 mg Q4H PRN IV SEVERE PAIN LEVEL 7-10 Last administered on 11/29/16 22:43; Admin Dose 2 MG; Start 11/29/16 at 07:00 Famotidine (Pepcid Iv) 20 mg Q12 IV Last administered on 11/30/16 08:07; Admin Dose 20 MG; Start 11/29/16 at 09:00 Phenol 2 spray 2 spray Q2H PRN MT SORE THROAT Last administered on 11/29/16 21 :16; Admin Dose 2 SPRAY; Start 11/29/16 at 10:30 Potassium Chloride/Dextrose/ Sod Cl (D5-1/2ns + KCl 20 Meq) 1,000 ml @ 100 mls/ hr Q10H IV Last administered on 11/30/16 06:09; Admin Dose 100 MLS/HR; Start 11/29/16 at 11:00 TAYLOR LAU Nov 30, 2016 15:07
[2016-11-30 15:11] LABS: HAAIG REFLEX REFLEX FILED
[2016-11-30 16:58] LABS: HEPATITIS B CORE ANTIBODY NEGATIVE (NEGATIVE)
[2016-11-30] MEDS: morphine 2 MG INJ IV PRN (20:32)
[2016-11-30 20:39] VITALS: BP 110/64; PULSE 68; RESP 18
[2016-12-01] MEDS: D5W-0.45 NACL + KCL 20 MEQ 1,000 ML IV SCH (04:40)
[2016-12-01 07:31] VITALS: BP 105/66; RESP 22
[2016-12-01] MEDS: FAMOTIDINE 20 MG INJ IV SCH (08:13)
[2016-12-01] MEDS ORDERED: TRAM50TA2 PO (08:36)
--- NOTE | 2016-12-01 08:37 | PDOCDIS ---
Discharge Instructions DIAGNOSIS Discharge Diagnosis: 1. small bowel obstruction CONDITION Patient Condition: Stable HOME CARE INSTRUCTIONS: Diet Instructions: Low Fat /Cholesterol FOLLOW UP/APPOINTMENTS Appointments 1. follow up with your primary care provider in one week TAYLOR LAU Dec 01, 2016 08:37
--- NOTE | 2016-12-01 14:07 | DS ---
Date/Time of Note Date/Time of Note DATE: 12/01/16 TIME: 14:05 Discharge Summary Admission/Discharge Info Admit Date/Time Nov 29, 2016 at 07:07 Discharge Date/Time Dec 01, 2016 at 13:25 Final Diagnosis 1. Abdominal pain secondary to ileus. 2. Leukocytosis secondary to #1. Patient Condition: Stable Consults 1. [facility] This is a 21 failed female with history of back pain and generalized abdominal pain and chest pain and nausea and episodes of vomiting that occurred day prior to admission Who came to [facility] due to her poorly flulike symptoms and body aches. Patient did report that she went to work the day prior to admission reporting having cold sweats. She did report having vomiting uncontrollably and was unable to tolerate oral intake. She denied any sick contacts. She did have initial CT scan of her abdomen that did show dilation of essentially all small bowel loops with suspect early distal small bowel obstruction. Patient did have NG tube in place. She was consulted by surgeon as well. Patient was provided with analgesics and placed npo and given adequate hydration. During her course of stay she did improve. She did have less output from NG tube and did have discontinued per surgeon. We did advance his diet per surgeon recommendations and she was able to tolerate oral intake. During her course of stay she did improve. She did report resolution her abdominal pain and was able to tolerate regular food. The plan of care was discussed with the patient and patient did verbalize understanding. On the day of discharge patient was in stable condition Discussed plan of care with Dr. Rodriguez Discharge process time is 40 minutes Disposition: Home Home Meds Active Scripts Tramadol HCl (Tramadol HCl) 50 Mg Tablet, 50 MG PO Q6 Y for PAIN, #20 TAB Prov:TAYLOR LAU 12/01/16 Ibuprofen* (Motrin*) 600 Mg Tab, 600 MG PO Q6H Y for PAIN AND OR ELEVATED TEMP, #30 TAB Prov:ENRRIQUE LOMBARDO NP 10/21/16 Discontinued Reported Medications Vits W-Ca,Fe,Fa(<1MG) () 1 Tab Tablet 12/12/10 Discontinued Scripts Cephalexin* (Keflex*) 500 Mg Capsule, 500 MG PO QID for 10 Days, CAP Prov:ERNRIQUE LOMBARDO NP 10/21/16 Hydrocodone/Acetaminophen ([place] 5-325 Tablet) 1 Each Tablet, 1 TAB PO Q6H Y for PAIN, #20 TAB Prov:ENRRIQUE LOMBARDO NP 10/21/16 Phenazopyridine Hcl* (Pyridium*) 200 Mg Tab, 200 MG PO TID Y for URINARY PAIN, # 6 TAB Prov:ENRRIQUE LOMBARDO NP 10/21/16 Tramadol HCl (Tramadol HCl) 50 Mg Tablet, 50 MG PO Q4 Y for PAIN, #20 TAB Prov:ROBB BRUNER MD 08/15/16 Ibuprofen* (Motrin*) 600 Mg Tab, 600 MG PO Q6, #20 TAB Prov:ROBB BRUNER MD 08/15/16 Follow-up Plan CONDITION Patient Condition: Stable HOME CARE INSTRUCTIONS: Diet Instructions: Low Fat /Cholesterol FOLLOW UP/APPOINTMENTS Appointments 1. follow up with your primary care provider in one week TAYLOR LAU Dec 01, 2016 14:06
== END 2016-12-01 13:25 | disposition home or self-care (01) | DRG 390 ==
LOC: FTE 21:45 → MS2 11-29 04:40 → OBSVTOIN 11-29 07:07
PROVIDERS: ADMIT Family Medicine; ATTEND Family Medicine
DX: K56.0 Paralytic ileus (principal); M54.5 Low back pain; R10.84 Generalized abdominal pain; R11.2 Nausea with vomiting, unspecified
CPT/HCPCS: 36415; 71010; 74176; 80053; 80061; 80307; 81001; 81003; 83036; 83690; 83735; 84100; 84439; 84443; 85025; 86704; 86709; 86803; 87040; 87086; 87340; 96361; 96374; 96375; 96376; G0378; J2250; J2270; J2405; J3480; J7030

== ENCOUNTER 2018-04-10 18:19 | Emergency (ER) | END 2018-04-10 19:36 | disposition left against medical advice (07) ==

== ENCOUNTER 2018-04-10 21:49 | Emergency (ER) | END 2018-04-11 01:24 | disposition home or self-care (01) ==

== ENCOUNTER 2018-04-27 21:27 | Emergency (ER) | END 2018-04-28 03:07 | disposition home or self-care (01) ==